=== PATIENT | female | born 1935 | race African-American/Black ===

== ENCOUNTER 2018-04-05 13:42 | Inpatient (IN) | payer OTHER ==
--- NOTE | 2018-04-05 14:24 | PDOC ---
History of Present Illness - General Chief Complaint: Respiratory Stated Complaint: CHEST COUGH/ CONJESTED Time Seen by Provider: 04/05/18 14:23 History Source: Patient Exam Limitations: No Limitations - History of Present Illness Initial Comments: 82 yo morbidly obese F w a pmh of HTN, HCL, cholelithiasis presents to the [facility] via private auto with a productive cough and she is concerned she has pneumonia. She states that her symptoms all began last thursday with a simple cold associated with nasal congstion and rhinorrhea but her symptoms became progressively worse and she started coughing and producing a significant amount of sputum. She states her sputum looks like "Long strands of spaghetti mucous" and she has been experiencing a significant amount of SOB and difficulty breathing. She admits to having taken 2 packages of coricidin to help her cough but it has not worked very well. She admits to having recent chills but does not believe she had a fever. She denies recent fevers, chest pain, back pain, headache, neck pain, blurry vision, abdominal pain, nausea, vomiting, diarrhea, constipation, dysuria, frequency, urgency, leg/arm swelling, or vertigo. PCP: Praful Cruz PSH: hysterectomy, corneal transplant Social Hx: Denies smoking, drinking, or other substance usage Allergies: NKA, NKDA Past History - Past Medical History Allergies/Adverse Reactions: Allergies Allergy/AdvReac Type Severity Reaction Status Date / Time No Known Allergies Allergy Verified 04/05/18 13:50 Home Medications: Ambulatory Orders Lisinopril/Hydrochlorothiazide [Lisinopril-Hctz 10-12.5 mg Tab] 1 each PO DAILY 11/21/11 Simvastatin [Zocor] 40 mg PO HS 11/21/11 Lansoprazole [Prevacid] 15 mg PO DAILY 04/05/18 COPD: No HTN: Yes Hypercholesterolemia: Yes - Suicide/Smoking/Psychosocial Hx Smoking Status: No Smoking History: Never smoked Number of Cigarettes Smoked Daily: 0 Hx Substance Use Treatment: No Review of Systems - Review of Systems Able to Perform ROS?: Yes Comments:: CONSTITUTIONAL: Present: Chills, fatigue Absent: fever EYES: Absent: visual changes ENT: Absent: ear pain, no sore throat CARDIOVASCULAR: Present: Chest pain Absent: no palpitations RESPIRATORY: Present: Cough, SOB, wheezing Absent: dyspnea with exertion, orthopnea, stridor, hemoptysis GI: Absent: abdominal pain, no nausea, no vomiting, no constipation, no diarrhea GENITOURINARY: Absent: dysuria, no frequency, no hematuria MUSKULOSKELETAL: Absent: back pain, no arthralgia, no myalgia SKIN: Absent: rash NEURO: Absent: headache *Physical Exam - Vital Signs Last Vital Signs Temp Pulse Resp BP Pulse Ox 98.2 F 88 20 139/87 99 04/05/18 13:50 04/05/18 13:50 04/05/18 13:50 04/05/18 13:50 04/05/18 13:50 - Physical Exam Comments: GENERAL: Well-appearing, well-nourished. No apparent distress. HEENT: Normocephalic, atraumatic. PERRL, EOM intact. CARDIOVASCULAR: Normal S1, S2. Regular rate and rhythm. PULMONARY: There is significant wheezing on the left lower and mid regions. Mild wheezing in the right base. No evidence of respiratory distress. No rales, crackles or rhonchi. ABDOMEN: Soft, non-distended, non-tender. EXTREMITIES: Normal ROM in all four extremities. No gross deformities. SKIN: Warm, dry. No rash NEUROLOGICAL: No focal neurological deficits. Moderate Sedation - Procedure Monitoring Vital Signs: Procedure Monitoring Vital Signs Temperature 98.2 F 04/05/18 13:50 Pulse Rate 88 04/05/18 13:50 Respiratory Rate 20 04/05/18 13:50 Blood Pressure 139/87 04/05/18 13:50 O2 Sat by Pulse Oximetry (%) 99 04/05/18 13:50 ED Treatment Course - LABORATORY CBC & Chemistry Diagram: 04/05/18 14:55 04/05/18 15:35 Medical Decision Making - Medical Decision Making 82 yo morbidly obese F w a pmh of HTN, HCL, cholelithiasis presents to the [facility] via private auto with a productive cough and she is concerned she has pneumonia. She states that her symptoms all began last thursday with a simple cold associated with nasal congstion and rhinorrhea but her symptoms became progressively worse and she started coughing and producing a significant amount of sputum. She states her sputum looks like "Long strands of spaghetti mucous" and she has been experiencing a significant amount of SOB and difficulty breathing. She admits to having taken 2 packages of coricidin to help her cough but it has not worked very well. She admits to having recent chills but does not believe she had a fever. VS: WNL DDx IBNLT: PNA, URI, influenza, Post viral bacterial PNA, ACS/SC, arrhythmia, reactive airway disease vs Asthma vs COPD, other infection. Plan: Labs, flu swab, CXR, EKG, duonebs, offirmev, re-assess. CXR shows PNA Based on CURB-65 patient fulfills 2 criteria - Confusion and age greater than 65. - Will start patient on Abx here in ED with ceftriaxone and then admit for further care *DC/Admit/Observation/Transfer Diagnosis at time of Disposition: Pneumonia - Discharge Dispostion Condition at time of disposition: Stable Decision to Admit order: Yes - Referrals Referrals: Praful Cruz MD [Primary Care Provider] - - Patient Instructions - Post Discharge Activity
[2018-04-05] MEDS ORDERED: SODIUM CHLORIDE 1,000 ML IV STA (14:35)
[2018-04-05] MEDS ORDERED: ALBUTEROL SO4 2.5/IPRATROPIUM 0.5 INH SOL 3 ML VIAL.NEB. NEB ONE ×5 (14:35→15:29)
[2018-04-05] MEDS ORDERED: ACETAMINOPHEN 1000 MG/100 ML VIAL (NON FORMULARY) IVPB ONE (14:36)
[2018-04-05] MEDS ORDERED: ACETAMINOPHEN INJECTION 100 ML IVPB ONE (14:43)
[2018-04-05 15:27] LABS: VENOUS PC02 44.9 mmHg (38-52); VENOUS PH 7.43 (7.32-7.42)
[2018-04-05 15:30] LABS: EOS % 1.7 % (0-4.5); HEMATOCRIT 35.7 % (32.4-45.2); HEMOGLOBIN 12.5 GM/dL (10.7-15.3); LYMPH % 28.8 % (8-40); MCH 32.4 pg (25.7-33.7); MCHC 34.9 g/dl (32.0-36.0); MEAN CELL VOLUME 92.9 fl (80-96); MEAN PLT VOLUME 8.3 fl (7.5-11.1); NEUT % 61.5 % (42.8-82.8); PLATELET COUNT 211 K/MM3 (134-434); RBC 3.85 M/mm3 (3.60-5.2); WHITE BLOOD COUNT 6.1 K/mm3 (4.0-10.0)
--- NOTE | 2018-04-05 15:33 | PDOC ---
Attending Attestation - HPI HPI: 04/05/18 16:22 The patient is a 82 year old female, with a significant past medical history of HTN, HLD, cholelithiasis, who presents to the emergency department with, wheezing, productive cough, and occasional body aches with chills. Patient endorses she initially became ill 1 weeks ago and her symptoms have become progressively worse. She denies recent nausea, vomit, diarrhea or constipation. She denies recent dysuria, frequency, urgency or hematuria. She denies recent chest pain or palpitations. Allergies: NKDA Past surgical history: hysterectomy, corneal transplant Social history: Nonsmoker. Denies EtOH use and recreational drug use. Primary Care Physician: Dr. Praful Cruz - Physicial Exam PE: 04/05/18 16:23 GENERAL: Awake, alert, and fully oriented, in no acute distress HEAD: No signs of trauma ENT: Oropharynx clear without exudates. Moist mucosa NECK: Normal ROM. +LUNGS: Diffuse expiratory wheezing. HEART: Regular rate and rhythm, normal S1 and S2, no murmurs, rubs or gallops ABDOMEN: Soft, nontender. No guarding, no rebound. No masses EXTREMITIES: Normal range of motion, no edema. No clubbing or cyanosis. No cords, erythema, or tenderness NEUROLOGICAL: Cranial nerves II through XII grossly intact. Normal speech, normal gait SKIN: Warm, Dry, normal turgor, no rashes or lesions noted. <Rosario Polk - Last Filed: 04/05/18 16:22> - Resident Resident Name: Chato Meadows - ED Attending Attestation I have performed the following: I have examined & evaluated the patient, The case was reviewed & discussed with the resident, I agree w/resident's findings & plan, Exceptions are as noted - Medical Decision Making 04/05/18 15:29 A portion of this note was documented by scribe services under my direction. I have reviewed the details of the note, within reason, and agree with the documentation with the following case summary and management plan written by me. Patient treated in the ED. Nursing notes are reviewed and incorporated into the medical decision-making. Vital signs reviewed. Peripheral IV access obtained by the nurse, laboratory studies are drawn and sent, reviewed and interpreted by myself. Vital Signs Temp Pulse Resp BP Pulse Ox 98.2 F 88 20 139/87 99 02/18/19 13:50 04/05/18 13:50 04/05/18 13:50 04/05/18 13:50 04/05/18 15:05 82-year-old female patient history of hypertension and hyperlipidemia presents with cough and upper respiratory signs for one week. Patient denies sick contacts or recent travels. Patient started endorsing initially dry cough that has progressively become productive. Patient reports increasing shortness of breath and wheezing. Denies any history of smoking or asthma. Patient denies fevers or chest pain. Reports that she started developing some mild sore throat. Patient's oropharynx is clear but the patient is significantly wheezing. We'll treat with 2 nabs and likely needs prednisone. However, differential includes bronchitis, pneumonia, influenza. We'll obtain labs, chest x-ray. Likely will need to initiate azithromycin. If patient's symptoms do not improve, we'll need to admit the patient to the hospital. 04/05/18 16:31 CBC, BMP 04/05/18 14:55 04/05/18 15:35 CMP Sodium 139 mmol/L (136-145) 04/05/18 15:35 Potassium 4.4 mmol/L (3.5-5.1) 04/05/18 15:35 Chloride 102 mmol/L (98-107) 04/05/18 15:35 Carbon Dioxide 31 mmol/L (21-32) 04/05/18 15:35 Anion Gap 7 MMOL/L (8-16) L 04/05/18 15:35 BUN 14 mg/dL (7-18) 04/05/18 15:35 Creatinine 0.8 mg/dL (0.55-1.3) 04/05/18 15:35 Creat Clearance w eGFR > 60 (>60) 04/05/18 15:35 Random Glucose 82 mg/dL (74-106) 04/05/18 15:35 Calcium 9.3 mg/dL (8.5-10.1) 04/05/18 15:35 Total Bilirubin 0.5 mg/dL (0.2-1) 04/05/18 15:35 AST 32 U/L (15-37) 04/05/18 15:35 ALT 18 U/L (13-61) 04/05/18 15:35 Alkaline Phosphatase 96 U/L (45-117) 04/05/18 15:35 Troponin I < 0.02 ng/ml (0.00-0.05) 04/05/18 15:35 Total Protein 7.4 g/dl (6.4-8.2) 04/05/18 15:35 Albumin 3.3 g/dl (3.4-5.0) L 04/05/18 15:35 04/05/18 16:31 Pt signed out to Dr. Rangel for further evaluation and managment. <Sarwat Giordano - Last Filed: 04/05/18 16:32> Heart Score/ECG Review #1 ECG reviewed & interpreted by me at: 15:00 04/05/18 15:33 NSR 78, no std/carolyn, normal axis, normal intervals, QTC 440 msec <Sarwat Giordano - Last Filed: 04/05/18 16:32> Attestations - Attestations 04/05/18 16:23 Documentation prepared by Rosario Polk, acting as medical practice assistant for Sarwat Giordano MD. <Rosario Polk - Last Filed: 04/05/18 16:22>
[2018-04-05 15:58] LABS: ALBUMIN 3.3 g/dl (3.4-5.0); ALK PHOS 96 U/L (45-117); ANION GAP 7 MMOL/L (8-16); BILIRUBIN,TOTAL 0.5 mg/dL (0.2-1); BLOOD UREA NITROGEN 14 mg/dL (7-18); CALCIUM 9.3 mg/dL (8.5-10.1); CHLORIDE 102 mmol/L (98-107); CO2 31 mmol/L (21-32); CREATININE 0.8 mg/dL (0.55-1.3); GLUCOSE,RANDOM 82 mg/dL (74-106); POTASSIUM 4.4 mmol/L (3.5-5.1); SGOT/AST 32 U/L (15-37); SGPT/ALT 18 U/L (13-61); SODIUM 139 mmol/L (136-145); TOT PROT 7.4 g/dl (6.4-8.2)
[2018-04-05] MEDS ORDERED: CEFTRIAXONE 1,000 MG in DEXTROSE 5%-WATER - 50 ML IVPB ONE (18:12)
[2018-04-05] MEDS ORDERED: CEFTRIAXONE 1 GM/50 ML BAG ONE (18:28)
[2018-04-05] MEDS ORDERED: SODIUM CHLORIDE 0.9% 500 ML INFUS.BAG IV ONE (20:42)
[2018-04-06] MEDS ORDERED: ACETAMINOPHEN 325 MG TABLET (FP) PO PRN (02:35)
[2018-04-06] MEDS ORDERED: ONDANSETRON 4 MG/2 ML VIAL IVPUSH PRN (02:37)
[2018-04-06 06:24] LABS: BASO % 0.9 % (0-2.0); EOS % 4.4 % (0-4.5); HEMATOCRIT 32.6 % (32.4-45.2); HEMOGLOBIN 11.3 GM/dL (10.7-15.3); LYMPH % 30.2 % (8-40); MCH 32.3 pg (25.7-33.7); MCHC 34.6 g/dl (32.0-36.0); MEAN CELL VOLUME 93.1 fl (80-96); MEAN PLT VOLUME 7.6 fl (7.5-11.1); MONO % 7.4 % (3.8-10.2); NEUT % 57.1 % (42.8-82.8); PLATELET COUNT 194 K/MM3 (134-434); RDW 12.3 % (11.6-15.6); WHITE BLOOD COUNT 5.3 K/mm3 (4.0-10.0)
[2018-04-06 06:59] LABS: ALK PHOS 84 U/L (45-117); ANION GAP 6 MMOL/L (8-16); BILIRUBIN,TOTAL 0.4 mg/dL (0.2-1); BLOOD UREA NITROGEN 11 mg/dL (7-18); CALCIUM 7.9 mg/dL (8.5-10.1); CHLORIDE 107 mmol/L (98-107); CO2 30 mmol/L (21-32); CREATININE 0.7 mg/dL (0.55-1.3); GLUCOSE,RANDOM 86 mg/dL (74-106); POTASSIUM 3.5 mmol/L (3.5-5.1); SGOT/AST 17 U/L (15-37); SGPT/ALT 14 U/L (13-61); SODIUM 142 mmol/L (136-145); TOT PROT 6.5 g/dl (6.4-8.2)
[2018-04-06] MEDS ORDERED: CEFTRIAXONE 1 GM/50 ML BAG ONE (08:31)
[2018-04-06] MEDS: HYDROCHLOROTHIAZIDE 12.5 MG CAPSULE (FP) PO SCH (09:14)
[2018-04-06] MEDS: HEPARIN NA (PORCINE) 5,000 UNITS/ML 1ML VIAL SQ SCH ×2 (09:14→21:24)
[2018-04-06] MEDS: LISINOPRIL 10 MG TABLET (FP) PO SCH (09:15)
[2018-04-06] MEDS: CEFTRIAXONE 1 GM in DEXTROSE 5%-WATER - 50 ML IVPB SCH (09:15)
[2018-04-06] MEDS: AZITHROMYCIN IVPB 250 MG in DEXTROSE 5%-WATER - 250 ML IVPB SCH (09:15)
[2018-04-06] MEDS ORDERED: PATIENT'S OWN MEDICATION (NON-FORMULARY) (Lisinopril/Hydrochlorothiazide [Lisinopril-Hctz PO SCH (10:00)
--- NOTE | 2018-04-06 12:00 | HP ---
Admitting History and Physical - Admission History of Present Illness: Pt is a 82 y/o morbidly obese female w/ PMH significant for HTN, HLD and cholelithiasis. Pt presented to the ER with a productive cough for last 5-6 days and associated w/ SOB. Pt stated that the SOB worsened in the last 2-3 days. Pt also states that her symptoms began as a cold associated with nasal congstion and rhinorrhea but her symptoms became progressively worse and she started coughing and producing a significant amount of sputum. She admits to having taken 2 packages of coricidin to help her cough but it has not worked very well. She admits to having recent chills but does not believe she had a fever. - Past Medical History Cardiovascular: Yes: HTN, Hyperlipdemia - Past Surgical History Past Surgical History: Yes: Hysterectomy Additional Past Surgical History: Corneal transplant - Smoking History Smoking history: Never smoked Aproximately how many cigarettes per day: 0 Home Medications - Allergies Allergies/Adverse Reactions: Allergies Allergy/AdvReac Type Severity Reaction Status Date / Time No Known Allergies Allergy Verified 04/05/18 13:50 - Home Medications Home Medications: Ambulatory Orders Lisinopril/Hydrochlorothiazide [Lisinopril-Hctz 10-12.5 mg Tab] 1 each PO DAILY 11/21/11 Simvastatin [Zocor] 40 mg PO HS 11/21/11 Lansoprazole [Prevacid] 15 mg PO DAILY 04/05/18 Family Disease History - Family Disease History Family History: Unremarkable Review of Systems - Review of Systems Constitutional: reports: Loss of Appetite, Weakness HENT: reports: No Symptoms Neck: reports: No Symptoms Cardiovascular: reports: Shortness of Breath Respiratory: reports: Cough, SOB Gastrointestinal: reports: No Symptoms Genitourinary: reports: No Symptoms Physical Examination Vital Signs: Vital Signs Temperature 97.7 F 04/06/18 07:18 Pulse Rate 74 04/06/18 07:18 Respiratory Rate 20 04/06/18 07:18 Blood Pressure 136/62 04/06/18 07:18 O2 Sat by Pulse Oximetry (%) 97 04/06/18 07:19 Constitutional: Yes: Well Nourished HENT: Yes: WNL Neck: Yes: WNL, Supple Cardiovascular: Yes: WNL, Regular Rate and Rhythm Respiratory: Yes: Diminished Gastrointestinal: Yes: WNL, Normal Bowel Sounds, Soft Musculoskeletal: Yes: WNL Extremities: Yes: WNL Edema: No Neurological: Yes: WNL, Alert, Oriented ...Motor Strength: WNL Labs: CBC, BMP 04/06/18 06:05 04/06/18 06:05 Problem List - Problems (1) Pneumonia Assessment/Plan: CXR showed bibasilar atelactesis vs infiltrate Cont IV ceftriaxone/zithro Cont nebulizers IV solumedrol Pulmonary consult CT scan chest pending Elevated lactic acid Repeat lactic acid level Code(s): J18.9 - PNEUMONIA, UNSPECIFIED ORGANISM (2) HTN (hypertension) Assessment/Plan: BP stable Cont Hctz/lisinopril Code(s): I10 - ESSENTIAL (PRIMARY) HYPERTENSION (3) HLD (hyperlipidemia) Assessment/Plan: Cont lipitor Code(s): E78.5 - HYPERLIPIDEMIA, UNSPECIFIED
--- NOTE | 2018-04-06 12:08 | EKG ---
Test Reason : Blood Pressure : / mmHG Vent. Rate : 078 BPM Atrial Rate : 078 BPM P-R Int : 144 ms QRS Dur : 080 ms QT Int : 386 ms P-R-T Axes : 034 066 050 degrees QTc Int : 440 ms POOR DATA QUALITY, INTERPRETATION MAY BE ADVERSELY AFFECTED NORMAL SINUS RHYTHM NORMAL ECG WHEN COMPARED WITH ECG OF 21-NOV-2011 08:37, NO SIGNIFICANT CHANGE WAS FOUND Confirmed by MD PRANAV, SINGH ([id number]) on 04/06/2018 12:07:50 PM Referred By: Confirmed By:SINGH ROCK MD
--- NOTE | 2018-04-06 14:10 | PN ---
Progress Note (short form) - Note Progress Note: PULMONARY CONSULTATION DICTATED 04/06/18 IMP DYSPNEA PNEUMONIA HTN ELEVATED LACTATE LEVEL PLAN IV ABX INHALED BRONCHODILATORS SHORT COURSE OF STEROIDS O2 CHEST CT CULTURES LEGIONELLA URINARY ANTIGEN TREND LACTATE DR STEVENS Problem List - Problems (1) Lactate blood increase Code(s): R79.89 - OTHER SPECIFIED ABNORMAL FINDINGS OF BLOOD CHEMISTRY (2) Pneumonia Code(s): J18.9 - PNEUMONIA, UNSPECIFIED ORGANISM (3) HTN (hypertension) Code(s): I10 - ESSENTIAL (PRIMARY) HYPERTENSION (4) HLD (hyperlipidemia) Code(s): E78.5 - HYPERLIPIDEMIA, UNSPECIFIED
[2018-04-06 14:42] VITALS: BMI 31.7
--- NOTE | 2018-04-06 14:53 | CONS ---
DATE OF CONSULTATION: 04/06/2018 REFERRING PHYSICIAN: Cathy Torrez MD HISTORY: The patient is an 82-year-old black female with past medical history of hypertension, hyperlipidemia, history of cholelithiasis, nonsmoker admitted to [facility] with complaint of a [id number]-rynbwdz of increasing shortness of breath, cough, and chest congestion. The patient states she was doing well until approximately a week ago when she started developing a cough productive of clear, thick, white sputum associated with shortness of breath, dyspnea on exertion, wheezing, chills, and body aches. She denied any fevers. She denied any nausea, vomiting, or diaphoresis. She went to her PMD and had a chest x-ray performed, which she was told was not completely normal. Her symptoms continued to worsen at which time she presented to the emergency room. In the ER, she had a chest x-ray performed, which revealed increasing bibasilar atelectasis and/or infiltrates. She was started on antibiotic therapy. As stated before, she is a nonsmoker. There is no history of occupational exposure to chemicals or fumes. There is no history of recent travel. There is no history of DVT or PE in the past. There is no history of asthma or COPD. PAST MEDICAL HISTORY: Includes hypertension, hyperlipidemia, cholelithiasis, corneal transplant, hysterectomy. REVIEW OF SYSTEMS: Positive shortness of breath, positive cough, positive mild chest congestion, positive wheezing. No fever. Positive chills. No hemoptysis, no abdominal pain or lower extremity edema. CURRENT MEDICATIONS: Include Zofran, Tylenol, Prinivil, Zithromax, ceftriaxone, heparin, DuoNeb, Lipitor, hydrochlorothiazide. PHYSICAL EXAMINATION: General: The patient is a well-developed, well-nourished female awake and alert in no acute distress. Vital Signs: He is afebrile. Blood pressure 144/61, respiratory rate 18, O2 saturation 99% on room air. HEENT: Normocephalic and atraumatic. Neck: Supple. Heart: Regular with S1, S2. Chest: A few scattered bilateral rhonchi. Abdomen: Soft. Bowel sounds are positive. Extremities: No cyanosis or edema. LABORATORIES: WBC 5.3, hemoglobin 11.3, hematocrit 32.6 with a platelet count of 194,000. Venous blood gas 7.43, PCO2 of 44, PO2 of 42, bicarbonate of 29, BUN 11, creatinine 0.7, lactate 2.8. Chest x-ray reveals increased markings at the bases. IMPRESSION: 1. Dyspnea, chest congestion, rule out pneumonia right lower lobe. 2. History of hypertension. 3. Hyperlipidemia. 4. Positive elevated lactate level. PLAN: IV antibiotics. Inhaled bronchodilators. Short course of Medrol. Supplemental O2. CT of the chest. Obtain blood cultures, sputum for culture and sensitivity as well as trend lactate and Legionella urinary antigen. JEROD STEVENS M.D. [id number]
[2018-04-06] MEDS: methylPREDNISolone NA SUCC 40 MG/1 ML VIAL IVPUSH SCH ×2 (15:02→18:12)
[2018-04-06] MEDS: ALBUTEROL SO4 2.5/IPRATROPIUM 0.5 INH SOL 3 ML VIAL.NEB. NEB PRN (20:31)
[2018-04-06] MEDS: ATORVASTATIN CA 20 MG TABLET (FP) PO SCH (21:25)
[2018-04-07] MEDS: methylPREDNISolone NA SUCC 40 MG/1 ML VIAL IVPUSH SCH ×3 (02:02→17:31)
[2018-04-07 06:52] LABS: BASO % 0.2 % (0-2.0); HEMATOCRIT 37.9 % (32.4-45.2); HEMOGLOBIN 12.8 GM/dL (10.7-15.3); LYMPH % 12.4 % (8-40); MCH 31.5 pg (25.7-33.7); MCHC 33.8 g/dl (32.0-36.0); MEAN CELL VOLUME 93.1 fl (80-96); MONO % 1.1 % (3.8-10.2); NEUT % 86.3 % (42.8-82.8); PLATELET COUNT 225 K/MM3 (134-434); RBC 4.07 M/mm3 (3.60-5.2); RDW 12.3 % (11.6-15.6)
[2018-04-07 07:31] LABS: ALBUMIN 3.5 g/dl (3.4-5.0); ALK PHOS 101 U/L (45-117); ANION GAP 10 MMOL/L (8-16); BILIRUBIN,TOTAL 0.4 mg/dL (0.2-1); BLOOD UREA NITROGEN 14 mg/dL (7-18); CHLORIDE 104 mmol/L (98-107); CO2 26 mmol/L (21-32); CREATININE 0.8 mg/dL (0.55-1.3); GLUCOSE,RANDOM 126 mg/dL (74-106); POTASSIUM 3.9 mmol/L (3.5-5.1); SGOT/AST 22 U/L (15-37); SGPT/ALT 18 U/L (13-61); SODIUM 140 mmol/L (136-145)
[2018-04-07] MEDS: DEXTROSE 5%-0.45% SALINE 1,000 ML IV SCH (08:35)
[2018-04-07] MEDS ORDERED: cefTRIAXone SODIUM 1 GM VIAL ONE (09:31)
[2018-04-07] MEDS ORDERED: PT OWN MED DRAWER 7, Y5N ONE (09:31)
[2018-04-07] MEDS ORDERED: DEXTROSE 5%-WATER - 50 ML IVPB ONE (09:31)
[2018-04-07] MEDS: HYDROCHLOROTHIAZIDE 12.5 MG CAPSULE (FP) PO SCH (09:34)
[2018-04-07] MEDS: CEFTRIAXONE 1 GM in DEXTROSE 5%-WATER - 50 ML IVPB SCH (09:35)
[2018-04-07] MEDS: LISINOPRIL 10 MG TABLET (FP) PO SCH (09:35)
[2018-04-07] MEDS: HEPARIN NA (PORCINE) 5,000 UNITS/ML 1ML VIAL SQ SCH ×2 (09:38→22:01)
[2018-04-07] MEDS: AZITHROMYCIN IVPB 250 MG in DEXTROSE 5%-WATER - 250 ML IVPB SCH (10:51)
--- NOTE | 2018-04-07 12:15 | PN ---
Progress Note (short form) - Note Progress Note: Feels a little better today. Some congested cough. No hemoptysis. Intake & Output 04/04/18 04/05/18 04/06/18 04/07/18 23:59 23:59 23:59 23:59 Intake Total 700 200 Output Total 200 Balance 500 200 Weight 202 lb 9 oz Last Vital Signs Temp Pulse Resp BP Pulse Ox 97.6 F 88 20 134/59 L 99 04/07/18 09:05 04/07/18 09:05 04/07/18 09:05 04/07/18 09:05 04/06/18 21:00 Active Medications Acetaminophen (Tylenol -) 650 mg PO Q6H PRN PRN Reason: FEVER Albuterol/Ipratropium (Duoneb -) 1 amp NEB Q6H PRN PRN Reason: SHORTNESS OF BREATH Last Admin: 04/06/18 20:31 Dose: 1 amp Atorvastatin Calcium (Lipitor -) 20 mg PO HS LESLI Last Admin: 04/06/18 21:25 Dose: 20 mg Heparin Sodium (Porcine) (Heparin -) 5,000 unit SQ BID LESLI Last Admin: 04/07/18 09:38 Dose: 5,000 unit Hydrochlorothiazide (Hctz -) 12.5 mg PO DAILY LESLI Last Admin: 04/07/18 09:34 Dose: 12.5 mg Azithromycin 250 mg/ Dextrose 250 mls @ 250 mls/hr IVPB DAILY LESLI Last Admin: 04/07/18 10:51 Dose: 250 mls/hr Ceftriaxone Sodium 1 gm/ (Dextrose) 50 mls @ 100 mls/hr IVPB DAILY LESLI; Protocol Last Admin: 04/07/18 09:35 Dose: 100 mls/hr Dextrose/Sodium Chloride (D5-1/2ns -) 1,000 mls @ 75 mls/hr IV ASDIR LESLI Last Admin: 04/07/18 08:35 Dose: 75 mls/hr Lisinopril (Prinivil) 10 mg PO DAILY LESLI Last Admin: 04/07/18 09:35 Dose: 10 mg Methylprednisolone Sodium Succinate (Solu-Medrol -) 40 mg IVPUSH Q8H-IV LESLI Last Admin: 04/07/18 09:37 Dose: 40 mg Ondansetron HCl (Zofran Injection) 4 mg IVPUSH Q6H PRN PRN Reason: NAUSEA AND/OR VOMITING GENERAL: Awake, alert, and fully oriented, in no acute distress HEAD: No signs of trauma ENT: Oropharynx clear without exudates. Moist mucosa NECK: Normal ROM. +LUNGS: Diffuse expiratory wheezing. HEART: Regular rate and rhythm, normal S1 and S2, no murmurs, rubs or gallops ABDOMEN: Soft, nontender. No guarding, no rebound. No masses EXTREMITIES: Normal range of motion, no edema. No clubbing or cyanosis. No cords, erythema, or tenderness NEUROLOGICAL: Cranial nerves II through XII grossly intact. Normal speech, normal gait SKIN: Warm, Dry, normal turgor, no rashes or lesions noted. Laboratory Results - last 24 hr 04/07/18 04/07/18 04/07/18 05:40 05:40 05:40 WBC 6.0 RBC 4.07 Hgb 12.8 Hct 37.9 D MCV 93.1 MCH 31.5 MCHC 33.8 RDW 12.3 Plt Count 225 MPV 8.0 Absolute Neuts (auto) 5.2 Neutrophils % 86.3 H D Lymphocytes % 12.4 D Monocytes % 1.1 L D Eosinophils % 0.0 D Basophils % 0.2 Nucleated RBC % 0 Sodium 140 Potassium 3.9 Chloride 104 Carbon Dioxide 26 Anion Gap 10 BUN 14 Creatinine 0.8 Creat Clearance w eGFR > 60 Random Glucose 126 H Lactic Acid 2.2 H* Calcium 9.0 Total Bilirubin 0.4 AST 22 ALT 18 Alkaline Phosphatase 101 Total Protein 8.0 Albumin 3.5 Problem List - Problems (1) Lactate blood increase Code(s): R79.89 - OTHER SPECIFIED ABNORMAL FINDINGS OF BLOOD CHEMISTRY (2) Pneumonia Code(s): J18.9 - PNEUMONIA, UNSPECIFIED ORGANISM (3) HTN (hypertension) Code(s): I10 - ESSENTIAL (PRIMARY) HYPERTENSION (4) HLD (hyperlipidemia) Code(s): E78.5 - HYPERLIPIDEMIA, UNSPECIFIED IMP DYSPNEA PNEUMONIA HTN ELEVATED LACTATE LEVEL PLAN IV ABX ORDERED: CAN LIKELY CHANGE TO PO IN THE NEXT 1 TO 2 DAYS INHALED BRONCHODILATORS SHORT COURSE OF STEROIDS O2 NEEDED DR VICENTE
[2018-04-07] MEDS: ALBUTEROL SO4 2.5/IPRATROPIUM 0.5 INH SOL 3 ML VIAL.NEB. NEB PRN (21:20)
[2018-04-07] MEDS: ATORVASTATIN CA 20 MG TABLET (FP) PO SCH (22:01)
[2018-04-07] MEDS: guaiFENesin 200 MG/10 ML 10 ML UNIT-DOSE CUPS PO PRN (22:50)
--- NOTE | 2018-04-07 23:38 | PN ---
Progress Note, Physician History of Present Illness: Pt still w/ cough - Current Medication List Current Medications: Active Medications Acetaminophen (Tylenol -) 650 mg PO Q6H PRN PRN Reason: FEVER Albuterol/Ipratropium (Duoneb -) 1 amp NEB Q6H PRN PRN Reason: SHORTNESS OF BREATH Last Admin: 04/07/18 21:20 Dose: 1 amp Atorvastatin Calcium (Lipitor -) 20 mg PO HS LESLI Last Admin: 04/07/18 22:01 Dose: 20 mg Guaifenesin (Robitussin -) 10 ml PO Q6H PRN PRN Reason: COUGH Last Admin: 04/07/18 22:50 Dose: 10 ml Heparin Sodium (Porcine) (Heparin -) 5,000 unit SQ BID LESLI Last Admin: 04/07/18 22:01 Dose: 5,000 unit Hydrochlorothiazide (Hctz -) 12.5 mg PO DAILY LESLI Last Admin: 04/07/18 09:34 Dose: 12.5 mg Azithromycin 250 mg/ Dextrose 250 mls @ 250 mls/hr IVPB DAILY LESLI Last Admin: 04/07/18 10:51 Dose: 250 mls/hr Ceftriaxone Sodium 1 gm/ (Dextrose) 50 mls @ 100 mls/hr IVPB DAILY [facility]; Protocol Last Admin: 04/07/18 09:35 Dose: 100 mls/hr Dextrose/Sodium Chloride (D5-1/2ns -) 1,000 mls @ 75 mls/hr IV ASDIR LESLI Last Admin: 04/07/18 08:35 Dose: 75 mls/hr Lisinopril (Prinivil) 10 mg PO DAILY LESLI Last Admin: 04/07/18 09:35 Dose: 10 mg Methylprednisolone Sodium Succinate (Solu-Medrol -) 40 mg IVPUSH Q8H-IV LESLI Last Admin: 04/07/18 17:31 Dose: 40 mg Ondansetron HCl (Zofran Injection) 4 mg IVPUSH Q6H PRN PRN Reason: NAUSEA AND/OR VOMITING - Objective Vital Signs: Vital Signs Temperature 98.2 F 04/07/18 20:57 Pulse Rate 78 04/07/18 20:57 Respiratory Rate 18 04/07/18 20:57 Blood Pressure 135/59 L 04/07/18 20:57 O2 Sat by Pulse Oximetry (%) 99 04/06/18 21:00 Cardiovascular: Yes: WNL, Regular Rate and Rhythm Respiratory: Yes: Wheezes Gastrointestinal: Yes: WNL, Normal Bowel Sounds, Soft Labs: CBC, BMP 04/07/18 05:40 04/07/18 05:40 Problem List - Problems (1) Pneumonia Assessment/Plan: CXR showed bibasilar atelactesis vs infiltrate CT scan chest noted Cont IV ceftriaxone/zithro Cont nebulizers IV solumedrol Code(s): J18.9 - PNEUMONIA, UNSPECIFIED ORGANISM (2) HTN (hypertension) Assessment/Plan: BP stable Cont Hctz/lisinopril Code(s): I10 - ESSENTIAL (PRIMARY) HYPERTENSION (3) HLD (hyperlipidemia) Assessment/Plan: Cont lipitor Code(s): E78.5 - HYPERLIPIDEMIA, UNSPECIFIED
[2018-04-08] MEDS: methylPREDNISolone NA SUCC 40 MG/1 ML VIAL IVPUSH SCH ×3 (01:26→18:43)
[2018-04-08 08:21] LABS: BASO % 0.1 % (0-2.0); HEMATOCRIT 35.1 % (32.4-45.2); HEMOGLOBIN 12.1 GM/dL (10.7-15.3); MCH 32.1 pg (25.7-33.7); MCHC 34.6 g/dl (32.0-36.0); MEAN CELL VOLUME 92.6 fl (80-96); MEAN PLT VOLUME 8.7 fl (7.5-11.1); MONO % 2.1 % (3.8-10.2); NEUT % 92.8 % (42.8-82.8); PLATELET COUNT 231 K/MM3 (134-434); RBC 3.79 M/mm3 (3.60-5.2); RDW 12.2 % (11.6-15.6); WHITE BLOOD COUNT 10.5 K/mm3 (4.0-10.0)
[2018-04-08 08:55] LABS: ALBUMIN 3.5 g/dl (3.4-5.0); ALK PHOS 89 U/L (45-117); ANION GAP 8 MMOL/L (8-16); BILIRUBIN,TOTAL 0.5 mg/dL (0.2-1); BLOOD UREA NITROGEN 21 mg/dL (7-18); CHLORIDE 103 mmol/L (98-107); CO2 27 mmol/L (21-32); CREATININE 0.8 mg/dL (0.55-1.3); GLUCOSE,RANDOM 110 mg/dL (74-106); POTASSIUM 3.8 mmol/L (3.5-5.1); SGOT/AST 18 U/L (15-37); SGPT/ALT 20 U/L (13-61); SODIUM 138 mmol/L (136-145); TOT PROT 7.7 g/dl (6.4-8.2)
[2018-04-08] MEDS ORDERED: DEXTROSE 5%-WATER - 50 ML IVPB ONE (09:33)
[2018-04-08] MEDS ORDERED: cefTRIAXone SODIUM 1 GM VIAL ONE (09:33)
[2018-04-08] MEDS: AZITHROMYCIN IVPB 250 MG in DEXTROSE 5%-WATER - 250 ML IVPB SCH (11:16)
[2018-04-08] MEDS: CEFTRIAXONE 1 GM in DEXTROSE 5%-WATER - 50 ML IVPB SCH (11:17)
[2018-04-08] MEDS: LISINOPRIL 10 MG TABLET (FP) PO SCH (11:20)
[2018-04-08] MEDS: HYDROCHLOROTHIAZIDE 12.5 MG CAPSULE (FP) PO SCH (11:21)
[2018-04-08] MEDS: HEPARIN NA (PORCINE) 5,000 UNITS/ML 1ML VIAL SQ SCH ×2 (11:21→22:07)
[2018-04-08] MEDS: DEXTROSE 5%-0.45% SALINE 1,000 ML IV SCH (11:21)
--- NOTE | 2018-04-08 11:27 | PN ---
Progress Note (short form) - Note Progress Note: Feels a little better today. More congested cough and able to expectorate more. No hemoptysis. Intake & Output 04/05/18 04/06/18 04/07/18 04/08/18 23:59 23:59 23:59 23:59 Intake Total 700 2307 825 Output Total 200 Balance 500 2307 825 Weight 202 lb 9 oz Last Vital Signs Temp Pulse Resp BP Pulse Ox 98.5 F 82 20 132/65 99 04/08/18 06:52 04/08/18 06:52 04/08/18 06:52 04/08/18 06:52 04/07/18 21:00 Active Medications Acetaminophen (Tylenol -) 650 mg PO Q6H PRN PRN Reason: FEVER Albuterol/Ipratropium (Duoneb -) 1 amp NEB Q6H PRN PRN Reason: SHORTNESS OF BREATH Last Admin: 04/07/18 21:20 Dose: 1 amp Atorvastatin Calcium (Lipitor -) 20 mg PO HS [facility] Last Admin: 04/07/18 22:01 Dose: 20 mg Guaifenesin (Robitussin -) 10 ml PO Q6H PRN PRN Reason: COUGH Last Admin: 04/07/18 22:50 Dose: 10 ml Heparin Sodium (Porcine) (Heparin -) 5,000 unit SQ BID [facility] Last Admin: 04/08/18 11:21 Dose: 5,000 unit Hydrochlorothiazide (Hctz -) 12.5 mg PO DAILY [facility] Last Admin: 04/08/18 11:21 Dose: 12.5 mg Azithromycin 250 mg/ Dextrose 250 mls @ 250 mls/hr IVPB DAILY [facility] Last Admin: 04/08/18 11:16 Dose: 250 mls/hr Ceftriaxone Sodium 1 gm/ (Dextrose) 50 mls @ 100 mls/hr IVPB DAILY [facility]; Protocol Last Admin: 04/08/18 11:17 Dose: 100 mls/hr Dextrose/Sodium Chloride (D5-1/2ns -) 1,000 mls @ 75 mls/hr IV ASDIR [facility] Last Admin: 04/08/18 11:21 Dose: Not Given Lisinopril (Prinivil) 10 mg PO DAILY [facility] Last Admin: 04/08/18 11:20 Dose: 10 mg Methylprednisolone Sodium Succinate (Solu-Medrol -) 40 mg IVPUSH Q8H-IV [facility] Last Admin: 04/08/18 11:20 Dose: 40 mg Ondansetron HCl (Zofran Injection) 4 mg IVPUSH Q6H PRN PRN Reason: NAUSEA AND/OR VOMITING GENERAL: Awake, alert, and fully oriented, in no acute distress HEAD: No signs of trauma ENT: Oropharynx clear without exudates. Moist mucosa NECK: Normal ROM. +LUNGS: Diffuse expiratory wheezing. HEART: Regular rate and rhythm, normal S1 and S2, no murmurs, rubs or gallops ABDOMEN: Soft, nontender. No guarding, no rebound. No masses EXTREMITIES: Normal range of motion, no edema. No clubbing or cyanosis. No cords, erythema, or tenderness NEUROLOGICAL: Cranial nerves II through XII grossly intact. Normal speech, normal gait SKIN: Warm, Dry, normal turgor, no rashes or lesions noted. Laboratory Results - last 24 hr 04/08/18 04/08/18 04/08/18 06:25 06:25 06:25 WBC 10.5 H RBC 3.79 Hgb 12.1 Hct 35.1 MCV 92.6 MCH 32.1 MCHC 34.6 RDW 12.2 Plt Count 231 MPV 8.7 Absolute Neuts (auto) 9.7 H Neutrophils % 92.8 H Lymphocytes % 5.0 L D Monocytes % 2.1 L D Eosinophils % 0.0 Basophils % 0.1 Nucleated RBC % 0 Sodium 138 Potassium 3.8 Chloride 103 Carbon Dioxide 27 Anion Gap 8 BUN 21 H Creatinine 0.8 Creat Clearance w eGFR > 60 Random Glucose 110 H Lactic Acid 2.1 H Calcium 9.0 Total Bilirubin 0.5 AST 18 ALT 20 Alkaline Phosphatase 89 Total Protein 7.7 Albumin 3.5 Problem List - Problems (1) Lactate blood increase Code(s): R79.89 - OTHER SPECIFIED ABNORMAL FINDINGS OF BLOOD CHEMISTRY (2) Pneumonia Code(s): J18.9 - PNEUMONIA, UNSPECIFIED ORGANISM (3) HTN (hypertension) Code(s): I10 - ESSENTIAL (PRIMARY) HYPERTENSION (4) HLD (hyperlipidemia) Code(s): E78.5 - HYPERLIPIDEMIA, UNSPECIFIED IMP DYSPNEA PNEUMONIA HTN ELEVATED LACTATE LEVEL PLAN IV ABX ORDERED: CAN LIKELY CHANGE TO PO IN AM INHALED BRONCHODILATORS DECREASE MEDROL O2 NEEDED WILL NEED TO CHECK PRE AND POST AMBULATION SATURATION PRIOR TO D/C DR VICENTE
[2018-04-08 11:53] LABS: ANISOCYTOSIS 2+; MACROCYTOSIS 0; PLATELET ESTIMATE NORMAL; TEAR DROP CELLS 1+
[2018-04-08] MEDS: ATORVASTATIN CA 20 MG TABLET (FP) PO SCH (22:07)
[2018-04-08] MEDS: guaiFENesin 200 MG/10 ML 10 ML UNIT-DOSE CUPS PO PRN (22:08)
--- NOTE | 2018-04-08 23:11 | PN ---
Progress Note, Physician - Current Medication List Current Medications: Active Medications Acetaminophen (Tylenol -) 650 mg PO Q6H PRN PRN Reason: FEVER Albuterol/Ipratropium (Duoneb -) 1 amp NEB Q6H PRN PRN Reason: SHORTNESS OF BREATH Last Admin: 04/07/18 21:20 Dose: 1 amp Atorvastatin Calcium (Lipitor -) 20 mg PO HS [facility] Last Admin: 04/08/18 22:07 Dose: 20 mg Guaifenesin (Robitussin -) 10 ml PO Q6H PRN PRN Reason: COUGH Last Admin: 04/08/18 22:08 Dose: 10 ml Heparin Sodium (Porcine) (Heparin -) 5,000 unit SQ BID [facility] Last Admin: 04/08/18 22:07 Dose: 5,000 unit Hydrochlorothiazide (Hctz -) 12.5 mg PO DAILY [facility] Last Admin: 04/08/18 11:21 Dose: 12.5 mg Azithromycin 250 mg/ Dextrose 250 mls @ 250 mls/hr IVPB DAILY [facility] Last Admin: 04/08/18 11:16 Dose: 250 mls/hr Ceftriaxone Sodium 1 gm/ (Dextrose) 50 mls @ 100 mls/hr IVPB DAILY [facility]; Protocol Last Admin: 04/08/18 11:17 Dose: 100 mls/hr Dextrose/Sodium Chloride (D5-1/2ns -) 1,000 mls @ 75 mls/hr IV ASDIR [facility] Last Admin: 04/08/18 11:21 Dose: Not Given Lisinopril (Prinivil) 10 mg PO DAILY [facility] Last Admin: 04/08/18 11:20 Dose: 10 mg Methylprednisolone Sodium Succinate (Solu-Medrol -) 40 mg IVPUSH Q8H-IV [facility] Last Admin: 04/08/18 18:43 Dose: 40 mg Ondansetron HCl (Zofran Injection) 4 mg IVPUSH Q6H PRN PRN Reason: NAUSEA AND/OR VOMITING - Objective Vital Signs: Vital Signs Temperature 97.8 F 04/08/18 22:00 Pulse Rate 72 04/08/18 22:00 Respiratory Rate 20 04/08/18 22:00 Blood Pressure 130/66 04/08/18 22:00 O2 Sat by Pulse Oximetry (%) 96 04/08/18 21:00 Labs: CBC, BMP 04/08/18 06:25 02/21/19 06:25 Problem List - Problems (1) Pneumonia Code(s): J18.9 - PNEUMONIA, UNSPECIFIED ORGANISM (2) HTN (hypertension) Code(s): I10 - ESSENTIAL (PRIMARY) HYPERTENSION (3) HLD (hyperlipidemia) Code(s): E78.5 - HYPERLIPIDEMIA, UNSPECIFIED
[2018-04-09] MEDS: methylPREDNISolone NA SUCC 40 MG/1 ML VIAL IVPUSH SCH ×2 (01:15→09:01)
[2018-04-09] MEDS: DEXTROSE 5%-0.45% SALINE 1,000 ML IV SCH ×2 (06:57→09:01)
[2018-04-09] MEDS ORDERED: cefTRIAXone SODIUM 1 GM VIAL ONE (08:58)
[2018-04-09] MEDS ORDERED: DEXTROSE 5%-WATER - 50 ML IVPB ONE (08:59)
[2018-04-09] MEDS: guaiFENesin 200 MG/10 ML 10 ML UNIT-DOSE CUPS PO PRN (09:00)
[2018-04-09] MEDS: CEFTRIAXONE 1 GM in DEXTROSE 5%-WATER - 50 ML IVPB SCH (09:00)
[2018-04-09] MEDS: HEPARIN NA (PORCINE) 5,000 UNITS/ML 1ML VIAL SQ SCH (09:00)
[2018-04-09] MEDS: HYDROCHLOROTHIAZIDE 12.5 MG CAPSULE (FP) PO SCH (09:01)
[2018-04-09] MEDS: LISINOPRIL 10 MG TABLET (FP) PO SCH (09:01)
[2018-04-09] MEDS: AZITHROMYCIN IVPB 250 MG in DEXTROSE 5%-WATER - 250 ML IVPB SCH (10:29)
--- NOTE | 2018-04-09 10:55 | PN ---
Progress Note (short form) - Note Progress Note: PULMONARY Feels a little better Wants to go home No hemoptysis. Active Medications reviewed GENERAL: Awake, alert, and fully oriented, in no acute distress HEAD: No signs of trauma ENT: Oropharynx clear without exudates. Moist mucosa NECK: Normal ROM. +LUNGS: Mild expiratory wheeze HEART: Regular rate and rhythm, normal S1 and S2, no murmurs, rubs or gallops ABDOMEN: Soft, nontender. No guarding, no rebound. No masses EXTREMITIES: Normal range of motion, no edema. No clubbing or cyanosis. No cords, erythema, or tenderness NEUROLOGICAL: Cranial nerves II through XII grossly intact. Normal speech, normal gait SKIN: Warm, Dry, normal turgor, no rashes or lesions noted. Problem List - Problems (1) Lactate blood increase Code(s): R79.89 - OTHER SPECIFIED ABNORMAL FINDINGS OF BLOOD CHEMISTRY (2) Pneumonia Code(s): J18.9 - PNEUMONIA, UNSPECIFIED ORGANISM (3) HTN (hypertension) Code(s): I10 - ESSENTIAL (PRIMARY) HYPERTENSION (4) HLD (hyperlipidemia) Code(s): E78.5 - HYPERLIPIDEMIA, UNSPECIFIED IMP DYSPNEA RESOLVED PNEUMONIA VS ATELECTASIS HTN ELEVATED LACTATE LEVEL DOWN TRENDING PLAN CHANGE TO PO ANTIBIOTICS INHALED BRONCHODILATORS TAPERING PREDNISONE AN OUTPATIENT NO OBJECTION TO DISCHARGE WILL NEED TO CHECK PRE AND POST AMBULATION SATURATION PRIOR TO D/C Dante BELTRAN MD
[2018-04-09] MEDS ORDERED: predniSONE 20 MG TABLET (UD) PO SCH (11:00)
[2018-04-09] MEDS: ALBUTEROL SO4 2.5/IPRATROPIUM 0.5 INH SOL 3 ML VIAL.NEB. NEB PRN (11:41)
[2018-04-09 14:45] VITALS: BP 134/64; PULSE 98; TEMP 98
== END 2018-04-09 15:38 | disposition home or self-care (01) | DRG 194 ==
LOC: JER 13:42 → JERBED 19:14 → J8W 04-06 14:11
PROVIDERS: ADMIT Internal Medicine; ATTEND Internal Medicine
DX: J18.9 Pneumonia, unspecified organism (principal); J98.11 Atelectasis; I10 Essential (primary) hypertension; E78.5 Hyperlipidemia, unspecified; R79.89 Other specified abnormal findings of blood chemistry
CPT/HCPCS: 36415; 71046-TC-FY; 71250-TC; 80053; 82803; 83605; 84484; 85025; 87804; 87899; 93005; 93010; 94640; 99284-25; J0131; J1644; J7030

== ENCOUNTER 2018-05-08 10:53 | Emergency (ER) | payer OTHER ==
[2018-05-08 11:04] VITALS: BP 126/70; PULSE 69; TEMP 98.4; BMI 29.7
[2018-05-08] MEDS ORDERED: MECLIZINE HCL 25 MG TABLET (FP) PO ONE (12:08)
[2018-05-08] MEDS ORDERED: MECLIZINE HCL 25 MG TABLET (FP) ONE ×2 (12:28→12:43)
[2018-05-08 12:53] LABS: BASO % 0.8 % (0-2.0); EOS % 0.8 % (0-4.5); HEMATOCRIT 35.1 % (32.4-45.2); HEMOGLOBIN 12.5 GM/dL (10.7-15.3); MCH 33.1 pg (25.7-33.7); MCHC 35.5 g/dl (32.0-36.0); MEAN CELL VOLUME 93.2 fl (80-96); MEAN PLT VOLUME 8.2 fl (7.5-11.1); MONO % 5.8 % (3.8-10.2); NEUT % 80.6 % (42.8-82.8); PLATELET COUNT 205 K/MM3 (134-434); RBC 3.77 M/mm3 (3.60-5.2); RDW 12.4 % (11.6-15.6); WHITE BLOOD COUNT 6.4 K/mm3 (4.0-10.0)
--- NOTE | 2018-05-08 13:16 | PDOC ---
History of Present Illness - History of Present Illness Initial Comments: 05/08/18 13:27 82-year-old female with a past medical history significant for HTN, HLD, hx of pneumonia and hx cholelithiasis presents to the emergency department with dizziness. The patient reports earlier today when she got up from picking the cats litter box she had an episode of dizziness and nausea, that lasted for several minutes before self-resolving. The patient reports the symptoms reproduced again later in the day when she bends down to pick something up. Denies chest pain or shortness of breath. Patient's family is concerned as the patient's family history of strokes. The patient reports she was at her usual health yesterday. Allergies: NKDA Socal history: Denies the use of tobacco, alcohol or recreational drugs. Surgical history: hysterectomy, corneal transplant PCP:Recently followed Dr. Bessie Cruz, now requesting new PCP. <Vida Child - Last Filed: 05/08/18 13:27> - General History Source: Patient Exam Limitations: No Limitations <Sarwat Giordano - Last Filed: 05/08/18 14:03> - General Chief Complaint: Lightheaded Stated Complaint: DIZZNESS/WEAKNESS Time Seen by Provider: 05/08/18 11:46 Past History <Vida Child - Last Filed: 05/08/18 13:27> - Past Medical History COPD: No HTN: Yes Hypercholesterolemia: Yes - Suicide/Smoking/Psychosocial Hx Smoking Status: No Smoking History: Never smoked Number of Cigarettes Smoked Daily: 0 Hx Alcohol Use: No Drug/Substance Use Hx: No Hx Substance Use Treatment: No <Sarwat Giordano - Last Filed: 05/08/18 14:03> - Past Medical History Allergies/Adverse Reactions: Allergies Allergy/AdvReac Type Severity Reaction Status Date / Time No Known Allergies Allergy Verified 05/08/18 11:00 Home Medications: Ambulatory Orders Lisinopril/Hydrochlorothiazide [Lisinopril-Hctz 10-12.5 mg Tab] 1 each PO DAILY 11/21/11 Simvastatin [Zocor -] 40 mg PO HS 11/21/11 Lansoprazole [Prevacid] 15 mg PO DAILY 04/05/18 Aspirin [ASA -] 81 mg PO DAILY 04/08/18 Cefuroxime Axetil [Ceftin -] 500 mg PO Q12H #14 tablet 04/09/18 Methylprednisolone [Medrol Dose Harris] 4 mg PO [facility] #21 tablet 04/09/18 Meclizine HCl 25 mg PO Q6H PRN #20 tablet 05/08/18 Ondansetron HCl [Zofran] 4 mg PO Q8H PRN #15 tablet 05/08/18 Review of Systems - Review of Systems Able to Perform ROS?: Yes Comments:: 05/08/18 13:27 GENERAL/CONSTITUTIONAL: No fever or chills. No weakness. HEAD, EYES, EARS, NOSE AND THROAT: No change in vision. No ear pain or discharge. No sore throat. CARDIOVASCULAR: No chest pain or shortness of breath. RESPIRATORY: No cough, wheezing, or hemoptysis. GASTROINTESTINAL: +nausea. No vomiting, diarrhea or constipation. GENITOURINARY: No dysuria, frequency, or change in urination. MUSCULOSKELETAL: No joint or muscle swelling or pain. No neck or back pain. SKIN: No rash NEUROLOGIC: +dizziness. No headache, loss of consciousness, or change in strength/sensation. ENDOCRINE: No increased thirst. No abnormal weight change. HEMATOLOGIC/LYMPHATIC: No anemia, easy bleeding, or history of blood clots. ALLERGIC/IMMUNOLOGIC: No hives or skin allergy. <Vida Child - Last Filed: 05/08/18 13:27> *Physical Exam - Vital Signs Last Vital Signs Temp Pulse Resp BP Pulse Ox 98.4 F 69 17 126/70 98 05/08/18 11:00 05/08/18 11:00 05/08/18 11:00 05/08/18 11:00 05/08/18 11:00 - Physical Exam Comments: 05/08/18 13:18 GENERAL: Awake, alert, and fully oriented, in no acute distress HEAD: No signs of trauma EYES: PERRLA, EOMI, sclera anicteric, conjunctiva clear ENT: Auricles normal inspection, hearing grossly normal, nares patent, oropharynx clear without exudates. Moist mucosa NECK: Normal ROM, supple, no lymphadenopathy, JVD, or masses LUNGS: Breath sounds equal, clear to auscultation bilaterally. No wheezes, and no crackles HEART: +soft systolic murmur. Regular rate and rhythm, normal S1 and S2, no rubs or gallops ABDOMEN: Soft, nontender. No guarding, no rebound. No masses EXTREMITIES: Normal range of motion, no edema. No clubbing or cyanosis. No cords, erythema, or tenderness NEUROLOGICAL: +cranial nerve II through XII intact, 5/5 strength in the upper and lower extremity. Sensation intact, subjective weakness to the left upper and lower extremity. No dysmetria, rapid alternating movement normal. heel to paredes normal. SKIN: Warm, Dry, normal turgor, no rashes or lesions noted. <Vida Child - Last Filed: 05/08/18 13:27> - Vital Signs Last Vital Signs Temp Pulse Resp BP Pulse Ox 98.4 F 69 17 126/70 98 05/08/18 11:00 05/08/18 11:00 05/08/18 11:00 05/08/18 11:00 05/08/18 11:00 <Sarwat Giordano - Last Filed: 05/08/18 14:03> Moderate Sedation - Procedure Monitoring Vital Signs: Procedure Monitoring Vital Signs Temperature 98.4 F 05/08/18 11:00 Pulse Rate 69 05/08/18 11:00 Respiratory Rate 17 05/08/18 11:00 Blood Pressure 126/70 05/08/18 11:00 O2 Sat by Pulse Oximetry (%) 98 05/08/18 11:00 <Vida Child - Last Filed: 05/08/18 13:27> - Procedure Monitoring Vital Signs: Procedure Monitoring Vital Signs Temperature 98.4 F 05/08/18 11:00 Pulse Rate 69 05/08/18 11:00 Respiratory Rate 17 05/08/18 11:00 Blood Pressure 126/70 05/08/18 11:00 O2 Sat by Pulse Oximetry (%) 98 05/08/18 11:00 <Sarwat Giordano - Last Filed: 05/08/18 14:03> Heart Score/ECG Review #1 ECG reviewed & interpreted by me at: 11:15 05/08/18 13:16 NSR 73, no std/carolyn, normal axis, normal intervals, QTC 434 msec <Sarwat Giordano - Last Filed: 05/08/18 14:03> ED Treatment Course - LABORATORY CBC & Chemistry Diagram: 05/08/18 12:40 05/08/18 12:08 - ADDITIONAL ORDERS Additional order review: 05/08/18 12:40 RBC 3.77 MCV 93.2 MCHC 35.5 RDW 12.4 MPV 8.2 Neutrophils % 80.6 Lymphocytes % 12.0 D Monocytes % 5.8 D Eosinophils % 0.8 D Basophils % 0.8 D - Medications Given in the ED: ED Medications Discontinued Medications Generic Name Dose Route Start Last Admin Trade Name Freq PRN Reason Stop Dose Admin Meclizine HCl 50 mg 05/08/18 12:08 05/08/18 12:43 Antivert - PO 05/08/18 12:09 50 mg ONCE ONE Administration <Vida Child - Last Filed: 05/08/18 13:27> - LABORATORY CBC & Chemistry Diagram: 05/08/18 12:40 05/08/18 12:08 - ADDITIONAL ORDERS Additional order review: 05/08/18 12:40 RBC 3.77 MCV 93.2 MCHC 35.5 RDW 12.4 MPV 8.2 Neutrophils % 80.6 Lymphocytes % 12.0 D Monocytes % 5.8 D Eosinophils % 0.8 D Basophils % 0.8 D - RADIOLOGY Radiology Studies Ordered: Category Date Time Status HEAD CT WITHOUT CONTRAST [CT] Stat CT Scan 05/08/18 12:26 Ordered - Medications Given in the ED: ED Medications Discontinued Medications Generic Name Dose Route Start Last Admin Trade Name Freq PRN Reason Stop Dose Admin Meclizine HCl 50 mg 05/08/18 12:08 05/08/18 12:43 Antivert - PO 05/08/18 12:09 50 mg ONCE ONE Administration <Sarwat Giordano - Last Filed: 05/08/18 14:03> Medical Decision Making - Medical Decision Making 05/08/18 13:10 A portion of this note was documented by scribe services under my direction. I have reviewed the details of the note, within reason, and agree with the documentation with the following case summary and management plan written by me. Patient treated in the ED. Nursing notes are reviewed and incorporated into the medical decision-making. Vital signs reviewed. Peripheral IV access obtained by the nurse, laboratory studies are drawn and sent, reviewed and interpreted by myself. Vital Signs Temp Pulse Resp BP Pulse Ox 98.4 F 69 17 126/70 98 05/08/18 11:00 05/08/18 11:00 05/08/18 11:00 05/08/18 11:00 05/08/18 11:00 82-year-old female history of hypertension, hyperlipidemia, prior history pneumonia presents with vertiginous-like symptoms. Patient was in her usual state health yesterday. Woke up this morning, feeling well. She stated that she went to bend over to moss picker her cat litter box. When she stood up she became intensely vertiginous and nauseous. Last for several minutes and then it resolved. Again a little bit later, the patient bent over and had reproducible symptoms. Came to the ER. Patient's family is concerned as patient's family history history of strokes. Patient denies chest pain or shortness of breath. I suspect patient likely has peripheral vertigo. We'll trial meclizine. However , patient does have chronic left sided subjective weakness which in this been gone for several months. Patient reports she never been worked up. We'll obtain head CT. Reassess. 05/08/18 13:58 CBC, BMP 05/08/18 12:40 05/08/18 12:08 CMP Sodium 140 mmol/L (136-145) 05/08/18 12:08 Potassium 4.1 mmol/L (3.5-5.1) 05/08/18 12:08 Chloride 103 mmol/L (98-107) 05/08/18 12:08 Carbon Dioxide 28 mmol/L (21-32) 05/08/18 12:08 Anion Gap 9 MMOL/L (8-16) 05/08/18 12:08 BUN 11 mg/dL (7-18) 05/08/18 12:08 Creatinine 0.7 mg/dL (0.55-1.3) 05/08/18 12:08 Creat Clearance w eGFR 79.91 (>60) 05/08/18 12:08 Random Glucose 97 mg/dL (74-106) 05/08/18 12:08 Calcium 9.8 mg/dL (8.5-10.1) 05/08/18 12:08 Total Bilirubin 0.5 mg/dL (0.2-1) 05/08/18 12:08 AST 17 U/L (15-37) 05/08/18 12:08 ALT 15 U/L (13-61) 05/08/18 12:08 Alkaline Phosphatase 93 U/L (45-117) 05/08/18 12:08 Creatine Kinase 65 U/L (26-192) 05/08/18 12:08 Troponin I < 0.02 ng/ml (0.00-0.05) 05/08/18 12:08 Total Protein 7.1 g/dl (6.4-8.2) 05/08/18 12:08 Albumin 3.5 g/dl (3.4-5.0) 05/08/18 12:08 CT head is negative. Pt reports no symptoms. Will treat as peripheral vertigo. Will give referral to a neurologist. Pt's family feels comfortable bring patient home. I discussed the physical exam findings, ancillary test results and final diagnoses with the patient. I answered all of the patient's questions. The patient was satisfied with the care received and felt comfortable with the discharge plan and treatment plan. The patient will call their primary care physician within 24 hours to arrange follow-up and will return to the Emergency Department with any new, persistant or worsening symptoms. <Sarwat Giordano - Last Filed: 05/08/18 14:03> *DC/Admit/Observation/Transfer - Attestations Scribe Attestion: 05/08/18 13:31 Documentation prepared by Vida Child, acting as medical physics professor for Sarwat Giordano MD. <Vida Child - Last Filed: 05/08/18 13:27> - Discharge Dispostion Decision to Admit order: No <Sarwat Giordano - Last Filed: 05/08/18 14:03> Diagnosis at time of Disposition: Peripheral vertigo Qualifiers: Laterality: unspecified laterality Qualified Code(s): H81.399 - Other peripheral vertigo, unspecified ear - Discharge Dispostion Disposition: HOME Condition at time of disposition: Stable - Prescriptions Prescriptions: Meclizine HCl 25 mg PO Q6H PRN #20 tablet PRN Reason: Dizziness Ondansetron HCl [Zofran] 4 mg PO Q8H PRN #15 tablet PRN Reason: Nausea - Referrals Referrals: Jesus Baltazar MD [Staff Physician] - - Patient Instructions Printed Discharge Instructions: DI for Vertigo Additional Instructions: You have had a copy of your blood work, CT head and ECG which is unremarkable. Please drink plenty of fluids and rest. I suspect that you have had peripheral neuropathy. You may take 25 mg meclizine every 6 hours as needed for dizziness. For nausea, take a tablet of zofran every 8 hours as needed. You should follow up with a neurologist. Call to schedule an appointment.
[2018-05-08 13:26] LABS: ALBUMIN 3.5 g/dl (3.4-5.0); ALK PHOS 93 U/L (45-117); ANION GAP 9 MMOL/L (8-16); BILIRUBIN,TOTAL 0.5 mg/dL (0.2-1); BLOOD UREA NITROGEN 11 mg/dL (7-18); CALCIUM 9.8 mg/dL (8.5-10.1); CHLORIDE 103 mmol/L (98-107); CO2 28 mmol/L (21-32); CREATININE 0.7 mg/dL (0.55-1.3); GLUCOSE,RANDOM 97 mg/dL (74-106); POTASSIUM 4.1 mmol/L (3.5-5.1); SGOT/AST 17 U/L (15-37); SGPT/ALT 15 U/L (13-61); SODIUM 140 mmol/L (136-145); TOT PROT 7.1 g/dl (6.4-8.2)
--- NOTE | 2018-05-08 17:03 | EKG ---
Test Reason : Blood Pressure : / mmHG Vent. Rate : 073 BPM Atrial Rate : 073 BPM P-R Int : 152 ms QRS Dur : 080 ms QT Int : 394 ms P-R-T Axes : 029 -07 031 degrees QTc Int : 434 ms NORMAL SINUS RHYTHM NORMAL ECG WHEN COMPARED WITH ECG OF 05-APR-2018 15:01, QUESTIONABLE CHANGE IN QRS AXIS NON-SPECIFIC CHANGE IN ST SEGMENT IN INFERIOR LEADS Confirmed by JUAN MITCHELL, TINO ([id number]) on 05/08/2018 5:02:59 PM Referred By: Confirmed By:TINO MARTINEZ MD
== END 2018-05-08 14:06 | disposition home or self-care (01) ==
LOC: JER 10:53
DX: H81.399 Other peripheral vertigo, unspecified ear (principal); I10 Essential (primary) hypertension; E78.5 Hyperlipidemia, unspecified; E78.00 Pure hypercholesterolemia, unspecified; Z87.01 Personal history of pneumonia (recurrent); Z87.19 Personal history of other diseases of the digestive system
CPT/HCPCS: 36415; 70450-TC; 80053; 82550; 84484; 85025; 93005; 93010; 99283-25

== ENCOUNTER 2021-09-15 17:13 | Inpatient (IN) | payer OTHER ==
[2021-09-15 17:46] LABS: BASO % 1.1 % (0-2.0); EOS % 5.6 % (0-4.5); HEMATOCRIT 26.1 % (32.4-45.2); HEMOGLOBIN 8.9 GM/dL (10.7-15.3); LYMPH % 20.2 % (8-40); MCHC 34.1 g/dl (32.0-36.0); MEAN CELL VOLUME 90.9 fl (80-96); MEAN PLT VOLUME 7.5 fl (7.5-11.1); MONO % 8.2 % (3.8-10.2); NEUT % 64.9 % (42.8-82.8); PLATELET COUNT 211 10^3/uL (134-434); RBC 2.87 M/mm3 (3.60-5.2); RDW 12.2 % (11.6-15.6); WHITE BLOOD COUNT 5.7 K/mm3 (4.0-10.0)
[2021-09-15 18:12] LABS: ALBUMIN 3.4 g/dl (3.4-5.0); CALCIUM 8.9 mg/dL (8.5-10.1)
[2021-09-15 18:13] LABS: BLOOD UREA NITROGEN 16.4 mg/dL (7-18)
[2021-09-15 18:16] LABS: PHOSPHOROUS 3.6 mg/dL (2.5-4.9)
[2021-09-15 18:17] LABS: BILIRUBIN,TOTAL 1.1 mg/dL (0.2-1); TOT PROT 7.4 g/dl (6.4-8.2)
[2021-09-15 20:35] LABS: PH,URINE 5.5 (5.0-8.0); URINE APPEARANCE CLEAR; URINE BILIRUBIN NEGATIVE (NEGATIVE); URINE COLOR YELLOW; URINE GLUCOSE (UA) NEGATIVE (NEGATIVE); URINE KETONE NEGATIVE (NEGATIVE); URINE LEUK ESTERASE NEGATIVE (NEGATIVE); URINE NITRITE NEGATIVE (NEGATIVE); URINE PROTEIN NEGATIVE (NEGATIVE); URINE UROBILINOGEN 0.2 mg/dL (0.2-1.0)
[2021-09-15] MEDS ORDERED: MECLIZINE HCL 25 MG TABLET (FP) PO PRN (21:50)
[2021-09-16 09:18] LABS: HEMATOCRIT 26.5 % (32.4-45.2); MCH 31.4 pg (25.7-33.7); MCHC 33.9 g/dl (32.0-36.0); MEAN CELL VOLUME 92.4 fl (80-96); MEAN PLT VOLUME 7.6 fl (7.5-11.1); PLATELET COUNT 215 10^3/uL (134-434); RBC 2.86 M/mm3 (3.60-5.2); RDW 12.3 % (11.6-15.6); WHITE BLOOD COUNT 5.6 K/mm3 (4.0-10.0)
[2021-09-16 09:50] LABS: CALCIUM 8.7 mg/dL (8.5-10.1)
[2021-09-16 09:52] LABS: CREATININE 0.8 mg/dL (0.55-1.3); PHOSPHOROUS 3.4 mg/dL (2.5-4.9)
[2021-09-16] MEDS: GABAPENTIN 300 MG CAPSULE PO SCH ×2 (11:35→22:27)
[2021-09-16] MEDS: FUROSEMIDE 40 MG TABLET (FP) PO SCH (11:36)
[2021-09-16] MEDS: ENOXAPARIN NA (PORCINE) 40 MG/0.4 ML DISP.SYRIN SQ SCH (15:16)
[2021-09-16] MEDS: ATORVASTATIN CA 20 MG TABLET (FP) PO SCH ×2 (16:35→22:27)
[2021-09-16 17:58] VITALS: BMI 29.2
[2021-09-17] MEDS: LISINOPRIL 10 MG TABLET PO SCH (09:15)
[2021-09-17] MEDS: FUROSEMIDE 40 MG TABLET (FP) PO SCH (09:15)
[2021-09-17] MEDS: ENOXAPARIN NA (PORCINE) 40 MG/0.4 ML DISP.SYRIN SQ SCH (09:15)
[2021-09-17] MEDS: GABAPENTIN 300 MG CAPSULE PO SCH ×2 (09:15→21:22)
[2021-09-17] MEDS: ATORVASTATIN CA 20 MG TABLET (FP) PO SCH (21:22)
[2021-09-18 08:55] LABS: BASO % 0.9 % (0-2.0); EOS % 8.3 % (0-4.5); HEMATOCRIT 27.1 % (32.4-45.2); HEMOGLOBIN 9.1 GM/dL (10.7-15.3); LYMPH % 23.1 % (8-40); MCH 30.7 pg (25.7-33.7); MCHC 33.5 g/dl (32.0-36.0); MEAN CELL VOLUME 91.5 fl (80-96); MEAN PLT VOLUME 7.6 fl (7.5-11.1); MONO % 7.6 % (3.8-10.2); NEUT % 60.1 % (42.8-82.8); PLATELET COUNT 233 10^3/uL (134-434); RBC 2.97 M/mm3 (3.60-5.2); RDW 12.3 % (11.6-15.6); WHITE BLOOD COUNT 5.7 K/mm3 (4.0-10.0)
[2021-09-18 09:18] LABS: ALBUMIN 2.7 g/dl (3.4-5.0); CALCIUM 8.5 mg/dL (8.5-10.1); MAGNESIUM 1.8 mg/dL (1.8-2.4)
[2021-09-18 09:21] LABS: CREATININE 0.7 mg/dL (0.55-1.3)
[2021-09-18 09:23] LABS: BILIRUBIN,TOTAL 0.7 mg/dL (0.2-1); TOT PROT 6.5 g/dl (6.4-8.2)
[2021-09-18] MEDS: GABAPENTIN 300 MG CAPSULE PO SCH ×2 (10:01→21:59)
[2021-09-18] MEDS: ENOXAPARIN NA (PORCINE) 40 MG/0.4 ML DISP.SYRIN SQ SCH (10:02)
[2021-09-18] MEDS: LISINOPRIL 10 MG TABLET PO SCH (11:47)
[2021-09-18] MEDS: FUROSEMIDE 40 MG TABLET (FP) PO SCH (11:47)
[2021-09-18] MEDS ORDERED: PNEUMOC 20-VAL CONJ-DIP CRM/PF 0.5 ML SYRINGE IM ONE (12:00)
[2021-09-18] MEDS: ATORVASTATIN CA 20 MG TABLET (FP) PO SCH (22:00)
[2021-09-19] MEDS: ENOXAPARIN NA (PORCINE) 40 MG/0.4 ML DISP.SYRIN SQ SCH (10:03)
[2021-09-19] MEDS: GABAPENTIN 300 MG CAPSULE PO SCH ×2 (10:04→22:06)
[2021-09-19] MEDS: FUROSEMIDE 40 MG TABLET (FP) PO SCH (10:04)
[2021-09-19] MEDS: LISINOPRIL 10 MG TABLET PO SCH (10:04)
[2021-09-19] MEDS: ATORVASTATIN CA 20 MG TABLET (FP) PO SCH (22:06)
[2021-09-20] MEDS: ENOXAPARIN NA (PORCINE) 80 MG/0.8 ML DISP.SYRIN SQ SCH ×3 (01:12→22:24)
[2021-09-20] MEDS: LISINOPRIL 10 MG TABLET PO SCH (09:26)
[2021-09-20] MEDS: FUROSEMIDE 40 MG TABLET (FP) PO SCH ×2 (09:26→09:34)
[2021-09-20] MEDS: GABAPENTIN 300 MG CAPSULE PO SCH ×2 (09:27→22:21)
[2021-09-20 10:28] LABS: EOS % 4.8 % (0-4.5); HEMATOCRIT 28.6 % (32.4-45.2); HEMOGLOBIN 9.6 GM/dL (10.7-15.3); LYMPH % 19.7 % (8-40); MCH 31.1 pg (25.7-33.7); MCHC 33.5 g/dl (32.0-36.0); MEAN CELL VOLUME 92.9 fl (80-96); MEAN PLT VOLUME 8.2 fl (7.5-11.1); MONO % 6.5 % (3.8-10.2); PLATELET COUNT 237 10^3/uL (134-434); RBC 3.08 M/mm3 (3.60-5.2); RDW 12.1 % (11.6-15.6)
[2021-09-20 10:53] LABS: ALBUMIN 2.8 g/dl (3.4-5.0); BLOOD UREA NITROGEN 9.3 mg/dL (7-18); CALCIUM 8.8 mg/dL (8.5-10.1); MAGNESIUM 1.9 mg/dL (1.8-2.4)
[2021-09-20 10:56] LABS: CREATININE 0.8 mg/dL (0.55-1.3)
[2021-09-20 10:58] LABS: TOT PROT 6.9 g/dl (6.4-8.2)
[2021-09-20 11:02] LABS: BILIRUBIN,TOTAL 1.1 mg/dL (0.2-1)
[2021-09-20] MEDS: LIDOCAINE 5% TOPICAL PATCH TP SCH (12:09)
[2021-09-20] MEDS: ACETAMINOPHEN 325 MG TABLET (FP) PO PRN ×2 (12:10→22:21)
[2021-09-20] MEDS: DOCUSATE SODIUM 100 MG CAPSULE (FP) PO SCH ×2 (14:11→22:21)
[2021-09-20] MEDS: POLYETHYLENE GLYCOL (HEALTHYLAX) 3350 17 GM PACKET PO SCH (14:11)
[2021-09-20] MEDS: ATORVASTATIN CA 20 MG TABLET (FP) PO SCH (22:21)
[2021-09-20] MEDS: LIDOCAINE PATCH REMOVAL MC SCH (22:24)
[2021-09-21] MEDS: DOCUSATE SODIUM 100 MG CAPSULE (FP) PO SCH ×3 (06:32→23:28)
[2021-09-21] MEDS: POLYETHYLENE GLYCOL (HEALTHYLAX) 3350 17 GM PACKET PO SCH (10:58)
[2021-09-21] MEDS: MULTIVITAMINS (DAILY MVI) TABLET (FP) PO SCH (10:58)
[2021-09-21] MEDS: LISINOPRIL 10 MG TABLET PO SCH ×2 (10:58→11:12)
[2021-09-21] MEDS: LIDOCAINE 5% TOPICAL PATCH TP SCH (10:58)
[2021-09-21] MEDS: FUROSEMIDE 40 MG TABLET (FP) PO SCH (10:58)
[2021-09-21] MEDS: ENOXAPARIN NA (PORCINE) 80 MG/0.8 ML DISP.SYRIN SQ SCH ×2 (10:58→23:27)
[2021-09-21] MEDS: GABAPENTIN 300 MG CAPSULE PO SCH ×2 (10:58→23:28)
[2021-09-21] MEDS ORDERED: MAG HYDROX/AL HYDROX/SIMETH 30 ML UNIT-DOSE CUP PO ONE (14:00)
[2021-09-21 19:56] LABS: BASO % 1.1 % (0-2.0); EOS % 8.6 % (0-4.5); HEMOGLOBIN 9.1 GM/dL (10.7-15.3); MCHC 33.8 g/dl (32.0-36.0); MEAN CELL VOLUME 91.9 fl (80-96); MONO % 9.4 % (3.8-10.2); NEUT % 52.9 % (42.8-82.8); PLATELET COUNT 242 10^3/uL (134-434); RBC 2.93 M/mm3 (3.60-5.2); RDW 12.4 % (11.6-15.6); WHITE BLOOD COUNT 4.5 K/mm3 (4.0-10.0)
[2021-09-21 20:17] LABS: CALCIUM 8.1 mg/dL (8.5-10.1)
[2021-09-21 20:18] LABS: ALBUMIN 2.5 g/dl (3.4-5.0); BLOOD UREA NITROGEN 12.2 mg/dL (7-18); MAGNESIUM 2.1 mg/dL (1.8-2.4)
[2021-09-21 20:21] LABS: CREATININE 0.7 mg/dL (0.55-1.3)
[2021-09-21 20:22] LABS: TOT PROT 6.6 g/dl (6.4-8.2)
[2021-09-21 20:23] LABS: BILIRUBIN,TOTAL 0.3 mg/dL (0.2-1)
[2021-09-21] MEDS: ATORVASTATIN CA 20 MG TABLET (FP) PO SCH (23:28)
[2021-09-21] MEDS: LIDOCAINE PATCH REMOVAL MC SCH (23:29)
[2021-09-22] MEDS: DOCUSATE SODIUM 100 MG CAPSULE (FP) PO SCH ×3 (06:52→23:47)
[2021-09-22 07:28] LABS: BASO % 1.3 % (0-2.0); EOS % 7.4 % (0-4.5); HEMATOCRIT 27.3 % (32.4-45.2); HEMOGLOBIN 9.3 GM/dL (10.7-15.3); LYMPH % 25.3 % (8-40); MCH 31.1 pg (25.7-33.7); MEAN CELL VOLUME 91.6 fl (80-96); MEAN PLT VOLUME 7.9 fl (7.5-11.1); MONO % 7.9 % (3.8-10.2); NEUT % 58.1 % (42.8-82.8); PLATELET COUNT 245 10^3/uL (134-434); RBC 2.98 M/mm3 (3.60-5.2); RDW 12.4 % (11.6-15.6); WHITE BLOOD COUNT 5.1 K/mm3 (4.0-10.0)
[2021-09-22 07:45] LABS: MAGNESIUM 2.2 mg/dL (1.8-2.4)
[2021-09-22 07:46] LABS: ALBUMIN 2.6 g/dl (3.4-5.0); BLOOD UREA NITROGEN 11.6 mg/dL (7-18); CALCIUM 8.7 mg/dL (8.5-10.1)
[2021-09-22 07:50] LABS: CREATININE 0.7 mg/dL (0.55-1.3)
[2021-09-22 07:51] LABS: BILIRUBIN,TOTAL 0.8 mg/dL (0.2-1)
[2021-09-22 07:52] LABS: TOT PROT 6.7 g/dl (6.4-8.2)
[2021-09-22] MEDS: LISINOPRIL 10 MG TABLET PO SCH (10:14)
[2021-09-22] MEDS: ENOXAPARIN NA (PORCINE) 80 MG/0.8 ML DISP.SYRIN SQ SCH ×2 (10:14→23:48)
[2021-09-22] MEDS: GABAPENTIN 300 MG CAPSULE PO SCH ×2 (10:14→23:47)
[2021-09-22] MEDS: LIDOCAINE 5% TOPICAL PATCH TP SCH (10:15)
[2021-09-22] MEDS: MULTIVITAMINS (DAILY MVI) TABLET (FP) PO SCH (10:15)
[2021-09-22] MEDS: FUROSEMIDE 40 MG TABLET (FP) PO SCH (10:15)
[2021-09-22] MEDS: POLYETHYLENE GLYCOL (HEALTHYLAX) 3350 17 GM PACKET PO SCH (10:15)
[2021-09-22] MEDS: ATORVASTATIN CA 20 MG TABLET (FP) PO SCH (23:47)
[2021-09-22] MEDS: LIDOCAINE PATCH REMOVAL MC SCH (23:48)
[2021-09-23] MEDS: DOCUSATE SODIUM 100 MG CAPSULE (FP) PO SCH ×2 (06:44→14:12)
[2021-09-23 08:47] VITALS: RESP 18
[2021-09-23 09:22] LABS: BASO % 0.8 % (0-2.0); EOS % 3.5 % (0-4.5); HEMATOCRIT 29.2 % (32.4-45.2); HEMOGLOBIN 9.8 GM/dL (10.7-15.3); LYMPH % 23.5 % (8-40); MCH 30.8 pg (25.7-33.7); MCHC 33.4 g/dl (32.0-36.0); MEAN CELL VOLUME 92.2 fl (80-96); MONO % 7.3 % (3.8-10.2); NEUT % 64.9 % (42.8-82.8); PLATELET COUNT 260 10^3/uL (134-434); RBC 3.17 M/mm3 (3.60-5.2); RDW 12.3 % (11.6-15.6); WHITE BLOOD COUNT 5.4 K/mm3 (4.0-10.0)
[2021-09-23 09:59] LABS: CALCIUM 8.9 mg/dL (8.5-10.1)
[2021-09-23 10:00] LABS: ALBUMIN 2.7 g/dl (3.4-5.0); BLOOD UREA NITROGEN 11.5 mg/dL (7-18); MAGNESIUM 2.3 mg/dL (1.8-2.4)
[2021-09-23 10:03] LABS: CREATININE 0.7 mg/dL (0.55-1.3)
[2021-09-23 10:06] LABS: BILIRUBIN,TOTAL 0.7 mg/dL (0.2-1)
[2021-09-23] MEDS: GABAPENTIN 300 MG CAPSULE PO SCH (10:06)
[2021-09-23] MEDS: POLYETHYLENE GLYCOL (HEALTHYLAX) 3350 17 GM PACKET PO SCH (10:06)
[2021-09-23] MEDS: MULTIVITAMINS (DAILY MVI) TABLET (FP) PO SCH (10:06)
[2021-09-23] MEDS: ENOXAPARIN NA (PORCINE) 80 MG/0.8 ML DISP.SYRIN SQ SCH (10:07)
[2021-09-23] MEDS: FUROSEMIDE 40 MG TABLET (FP) PO SCH (10:07)
[2021-09-23] MEDS: LIDOCAINE 5% TOPICAL PATCH TP SCH (10:07)
[2021-09-23] MEDS: LISINOPRIL 10 MG TABLET PO SCH (10:07)
[2021-09-23 15:38] VITALS: BP 104/48; PULSE 80; TEMP 98.7
== END 2021-09-23 18:00 | DRG 306 ==
LOC: JER 17:13 → JERBED 18:42 → OBSVTOIN 21:24 → INTOOBSV 21:24 → J7W 09-16 11:21
PROVIDERS: ADMIT Internal Medicine; ATTEND Nurse Practitioner Family
DX: I35.0 Nonrheumatic aortic (valve) stenosis (principal); I50.33 Acute on chronic diastolic (congestive) heart failure; J98.11 Atelectasis; I82.4Z1 Acute embolism and thrombosis of unspecified deep veins of right distal lower extremity; R29.6 Repeated falls; E78.5 Hyperlipidemia, unspecified; I11.0 Hypertensive heart disease with heart failure; R26.81 Unsteadiness on feet; R41.82 Altered mental status, unspecified; I65.21 Occlusion and stenosis of right carotid artery; D64.9 Anemia, unspecified; E66.9 Obesity, unspecified; Z68.29 Body mass index [BMI] 29.0-29.9, adult
CPT/HCPCS: 36415; 70450-TC; 70498-TC; 71045-TC-FY; 71250-TC; 72125-TC; 72131-TC; 72170-TC-FY; 73206-TC-RT; 73552-TC-LT-FY; 73560-TC-LT-FY; 80053; 80061; 81003; 82272; 82607; 82728; 82746; 83036; 83540; 83550; 83615; 83735; 83880; 84100; 84155; 84165; 84443; 84484; 85025; 85027; 85045; 87040; 87086; 90677; 93005; 93010; 93306-TC; 93880-TC; 93970-TC; 97116-GP; 97162-GP; 99285-25; C9803-CS; G0378; Q9967; U0003; U0005

== ENCOUNTER 2021-10-04 22:04 | Emergency (ER) | payer OTHER ==
[2021-10-04 22:25] VITALS: BP 91/73; PULSE 114; RESP 24; BMI 41.5
[2021-10-04] MEDS ORDERED: ACETAMINOPHEN 1000 MG/100 ML BAG IVPB ONE (22:32)
[2021-10-04] MEDS ORDERED: SODIUM CHLORIDE 0.9% 500 ML INFUS.BAG IV ONE (22:40)
[2021-10-04] MEDS ORDERED: ACETAMINOPHEN INJECTION 100 ML IVPB ONE (22:50)
[2021-10-04 22:53] VITALS: TEMP 96.3
[2021-10-04] MEDS ORDERED: MAGNESIUM SULFATE IN WATER 2 GM/50 ML IVPB IVPB ONE (23:06)
[2021-10-04] MEDS ORDERED: EPINEPHrine 1:10,000 (P-F SYR) 1 MG/10 ML DISP.SYRIN ONE (23:13)
[2021-10-04 23:22] LABS: BASO % 0.1 % (0-2.0); HEMATOCRIT 27.1 % (32.4-45.2); HEMOGLOBIN 8.9 GM/dL (10.7-15.3); LYMPH % 11.3 % (8-40); MCH 31.6 pg (25.7-33.7); MCHC 32.9 g/dl (32.0-36.0); MEAN PLT VOLUME 8.7 fl (7.5-11.1); MONO % 2.3 % (3.8-10.2); NEUT % 86.3 % (42.8-82.8); PLATELET COUNT 290 10^3/uL (134-434); RBC 2.82 M/mm3 (3.60-5.2); RDW 12.2 % (11.6-15.6); WHITE BLOOD COUNT 9.7 K/mm3 (4.0-10.0)
[2021-10-04] MEDS ORDERED: CALCIUM CHLORIDE 1 GM/10 ML *DISP.SYRIN ONE (23:23)
[2021-10-04 23:24] LABS: VENOUS BASE EXCESS -13.7 mmol/L (-2-2); VENOUS O2 SATURATION 31.3 % (70-80); VENOUS PCO2 58.8 mmHg (38-52)
[2021-10-04 23:30] LABS: VENOUS PH 7.057 (7.310-7.410)
[2021-10-04 23:55] LABS: ALBUMIN 2.7 g/dl (3.4-5.0); MAGNESIUM 2.5 mg/dL (1.8-2.4)
[2021-10-04 23:59] LABS: INR 1.25 (0.83-1.09); PROTHROMBIN TIME (PATIENT) 14.4 SEC (9.7-13.0)
[2021-10-05 00:02] LABS: ACTIVATED PTT 43.8 SECONDS (25.2-36.5)
[2021-10-05 00:14] LABS: BILIRUBIN,TOTAL 0.9 mg/dL (0.2-1); BLOOD UREA NITROGEN 21.1 mg/dL (7-18); CALCIUM 9.3 mg/dL (8.5-10.1); CREATININE 1.8 mg/dL (0.55-1.3); PHOSPHOROUS 7.5 mg/dL (2.5-4.9); TOT PROT 7.3 g/dl (6.4-8.2)
[2021-10-05 00:15] LABS: LACTIC ACID > 15.0 mmol/L (0.4-2.0)
== END 2021-10-05 03:01 | disposition expired ==
LOC: JER 22:04
PROC: 3E033NZ Introduction of Analgesics, Hypnotics, Sedatives into Peripheral Vein, Percutaneous Approach (ICD-10-PCS; principal; 2021-10-04)
DX: I46.9 Cardiac arrest, cause unspecified (principal); N17.9 Acute kidney failure, unspecified; D64.9 Anemia, unspecified; R41.82 Altered mental status, unspecified
CPT/HCPCS: 36415; 80053; 82550; 82553; 82803; 82962; 83605; 83735; 83880; 84100; 84484; 85025; 85610; 85730; 87040; 93005; 93010; 99291; C9803-CS; U0003; U0005